=== PATIENT | female | born 1990 | race Caucasian/White ===

== ENCOUNTER → 2016-12-13 | Outpatient (CLI) | payer BC ==
--- NOTE | 2016-12-13 10:30 | REP ---
PELVIC SONOGRAPHY: HISTORY: Neoplasm of uncertain behavior right ovary. Comparison study October 25, 2016. FINDINGS: Transabdominal and transvaginal scanning are included. Uterine dimensions are normal today at 7.6 x 2.7 x 4.3 cm. Endometrial echo is normal measuring 0.5 cm in thickness. No focal uterine mass is seen. No free fluid is noted. Normal right ovary seen today measuring 3.4 x 1.6 x 1.7 cm. Left ovary is normal as well measuring 3.0 x 1.4 x 1.6 cm. IMPRESSION: No ovarian abnormality. Normal pelvic sonography. Signed by Bandar Harding MD 12/13/2016 02:51 P
== END ==
LOC: M RAD 08:46
PROVIDERS: ATTEND Obstetrics & Gynecology
DX: D39.11 Neoplasm of uncertain behavior of right ovary (principal)

== ENCOUNTER → 2018-06-10 | Outpatient (REF) | payer BC ==
[2018-06-10 18:24] LABS: INFLUENZA A AMPLIFICATION NEGATIVE (NEGATIVE); INFLUENZA B AMPLIFICATION NEGATIVE (NEGATIVE)
== END ==
LOC: M LAB REF 17:26
DX: J02.9 Acute pharyngitis, unspecified (principal)
CPT/HCPCS: 87070

== ENCOUNTER → 2018-08-16 | Outpatient (REF) | payer BC | LOC: M SFHCLERA 10:16 | PROVIDERS: ATTEND Nurse Practitioner Family | DX: J02.9 Acute pharyngitis, unspecified (principal) ==

== ENCOUNTER → 2018-09-26 | Outpatient (CLI) | payer BC ==
[2018-09-26 14:22] LABS: BASO # 0.1 10^3/uL (0.0-0.2); BASO % 1.4 % (0.0-1.0); EOS # 0.1 10^3/uL (0.0-0.50); EOS % 1.7 % (0.0-3.0); HEMATOCRIT 41.3 % (36.0-47.0); HEMOGLOBIN 13.5 g/dl (12.0-15.5); LYMPH # 1.6 10^3/uL (1.5-6.5); MEAN CORPUSCULAR HEMOGLOBIN 29.1 pg (27.0-33.0); MEAN CORPUSCULAR HGB CONC 32.7 g/dl (32.0-36.5); MONO # 0.3 10^3/uL (0.0-0.8); MONO % 8.1 % (0.0-5.0); NEUTROPHILS # 2.1 10^3/uL (1.8-7.7); NEUTROPHILS % 49.6 % (36.0-66.0); PLATELET COUNT, AUTOMATED 220 10^3/uL (150-450); RED BLOOD COUNT 4.64 10^6/uL (4.00-5.40); WHITE BLOOD COUNT 4.2 10^3/uL (4.0-10.0)
[2018-09-26 14:38] LABS: HEMOGLOBIN A1c 4.9 %
[2018-09-26 15:55] LABS: CHLAMYDIA DNA AMPLIFICATION NEGATIVE (NEGATIVE); GC DNA AMPLIFICATION NEGATIVE (NEGATIVE)
[2018-09-26 16:14] LABS: LUTEINIZING HORMONE 10.6 mIU/mL; PROLACTIN 7.1 NG/ML
[2018-09-26 16:15] LABS: ESTRADIOL 233.1 PG/ML
[2018-09-26 16:16] LABS: FOLLICLE STIMULATING HORMONE 4.6 mIU/mL
[2018-09-26 16:25] LABS: RUBELLA IgG QUALITATIVE IMMUNE (IMMUNE)
[2018-09-26 16:54] LABS: HEPATITIS C VIRUS ABY INDEX 0.1 INDEX (<0.8)
[2018-09-26 16:55] LABS: HIV 1&2 SCREEN CENTAUR NEGATIVE (NEGATIVE)
== END ==
LOC: M SMT 09:56
PROVIDERS: ATTEND Obstetrics & Gynecology
DX: N97.9 Female infertility, unspecified (principal)

== ENCOUNTER 2018-12-25 13:21 | Emergency (ER) | payer BC, OTHER ==
[~2018-12-25] VITALS: Ht 162.6 cm; Wt 54.5 kg
[2018-12-25] MEDS ORDERED: ACETAMINOPHEN TAB 650MG DOSE (2X325MG) PO ONE (13:45)
[2018-12-25] MEDS ORDERED: ALPRAZolam 0.25 MG TAB PO ONE (13:45)
[2018-12-25 14:59] VITALS: BP 122/76
== END 2018-12-25 15:15 | disposition home or self-care (01) ==
LOC: M ED 14:24
DX: S60.212A Contusion of left wrist, initial encounter (principal); V49.40XA Driver injured in collision with unspecified motor vehicles in traffic accident, initial encounter; Y92.9 Unspecified place or not applicable; F17.210 Nicotine dependence, cigarettes, uncomplicated; F43.0 Acute stress reaction; Z88.0 Allergy status to penicillin

== ENCOUNTER 2019-01-20 00:16 | Emergency (ER) | payer BC, OTHER ==
[~2019-01-20] VITALS: Ht 162.6 cm; Wt 54.5 kg
[2019-01-20] MEDS ORDERED: METHOCARBAMOL 1,000 MG/10 ML VIAL (J2800) IV ONE (02:45)
[2019-01-20] MEDS ORDERED: KETOROLAC 30 MG/ML VIAL (J1885) IV ONE (02:45)
[2019-01-20] MEDS ORDERED: NAPR-837 PO (03:48)
[2019-01-20] MEDS ORDERED: ROBA500T PO (03:48)
[2019-01-20 04:02] VITALS: BP 132/87
== END 2019-01-20 04:07 | disposition home or self-care (01) ==
LOC: M ED 00:16
DX: M54.5 Low back pain (principal); M62.830 Muscle spasm of back; F43.10 Post-traumatic stress disorder, unspecified; E28.2 Polycystic ovarian syndrome; F17.210 Nicotine dependence, cigarettes, uncomplicated; Z88.0 Allergy status to penicillin
CPT/HCPCS: 96374; 96375; 99284; J1885; J2800

== ENCOUNTER 2019-04-16 16:17 | Emergency (ER) | payer BC, OTHER ==
[~2019-04-16] VITALS: Ht 162.6 cm; Wt 60.9 kg
[~2019-04-16 16:17] MED LIST: NAPR-837 PO; ROBA500T PO
[2019-04-16] MEDS ORDERED: ENSK1TAB3 PO (16:24)
[2019-04-16] MEDS ORDERED: KETOROLAC 60 MG/2 ML VIAL (J1885) IM ONE (17:30)
[2019-04-16] MEDS ORDERED: CYCL5TAB PO (17:58)
[2019-04-16] MEDS ORDERED: KETO10TAB PO (17:58)
[2019-04-16 18:30] VITALS: BP 115/78
== END 2019-04-16 18:32 | disposition home or self-care (01) ==
LOC: M ED 16:17
DX: J02.9 Acute pharyngitis, unspecified (principal); M54.5 Low back pain; E28.2 Polycystic ovarian syndrome; F17.200 Nicotine dependence, unspecified, uncomplicated; Z79.3 Long term (current) use of hormonal contraceptives; Z88.0 Allergy status to penicillin
CPT/HCPCS: 87880; 96372; 99284; J1885

== ENCOUNTER 2019-06-04 03:11 | Emergency (ER) | payer BC ==
[~2019-06-04] VITALS: Ht 162.6 cm; Wt 60.9 kg
[2019-06-04 03:11] VITALS: BP 141/88
[~2019-06-04 03:11] MED LIST changes: +CYCL5TAB PO; +ENSK1TAB3 PO; +KETO10TAB PO
[2019-06-04] MEDS ORDERED: CEFD1CAP8 PO (05:45)
[2019-06-04] MEDS ORDERED: CEFDINIR 300 MG CAP (OMNICEF) PO ONE (05:45)
== END 2019-06-04 06:02 | disposition home or self-care (01) ==
LOC: M ED 03:11
DX: J02.0 Streptococcal pharyngitis (principal); E28.2 Polycystic ovarian syndrome; Z79.3 Long term (current) use of hormonal contraceptives; Z88.0 Allergy status to penicillin; F17.210 Nicotine dependence, cigarettes, uncomplicated

== ENCOUNTER 2019-07-18 16:26 | Emergency (ER) | payer BC, OTHER ==
[~2019-07-18] VITALS: Ht 162.6 cm; Wt 67.9 kg
[~2019-07-18 16:26] MED LIST changes: +CEFD1CAP8 PO
--- NOTE | 2019-07-18 18:10 | REP ---
Left foot series: Four views. History: Left foot pain intermittently. Previous injury. Findings: Four views of the left foot demonstrate overall normal mineralization. There is no visible fracture or subluxation. No periosteal reaction is seen. Joint spaces are preserved. Impression: Negative radiographs left foot. Electronically Signed by Bandar Harding MD 07/18/2019 06:01 P
[2019-07-18 20:27] VITALS: BP 134/74
== END 2019-07-18 20:29 | disposition home or self-care (01) ==
LOC: M ED 16:26
DX: M79.672 Pain in left foot (principal); W00.0XXA Fall on same level due to ice and snow, initial encounter; Y99.0 Civilian activity done for income or pay; Z88.1 Allergy status to other antibiotic agents; Z79.899 Other long term (current) drug therapy

== ENCOUNTER 2019-08-15 15:40 | Emergency (ER) | payer BC, OTHER ==
[~2019-08-15] VITALS: Ht 162.6 cm; Wt 68.4 kg
[2019-08-15 17:32] LABS: INFLUENZA A AMPLIFICATION NEGATIVE (NEGATIVE); INFLUENZA B AMPLIFICATION NEGATIVE (NEGATIVE)
[2019-08-15] MEDS ORDERED: ONDA4TAB6 PO (18:32)
[2019-08-15 18:37] VITALS: BP 128/77
== END 2019-08-15 18:40 | disposition home or self-care (01) ==
LOC: M ED 15:40
DX: J06.9 Acute upper respiratory infection, unspecified (principal); Z79.3 Long term (current) use of hormonal contraceptives; Z88.0 Allergy status to penicillin

== ENCOUNTER 2020-01-14 13:19 | Emergency (ER) | payer OTHER, BC ==
[~2020-01-14] VITALS: Ht 162.6 cm; Wt 71.4 kg
[~2020-01-14 13:19] MED LIST changes: +ONDA4TAB6 PO
[2020-01-14] MEDS ORDERED: ZYRTTAB8 PO (13:30)
[2020-01-14] MEDS ORDERED: IBUP-1022 PO (13:37)
[2020-01-14] MEDS ORDERED: ACETAMINOPHEN 325 MG TAB PO ONE (14:00)
[2020-01-14] MEDS ORDERED: ONDANSETRON 4 MG ORAL DISINTEGRATING TAB PO ONE (14:00)
[2020-01-14] MEDS ORDERED: ONDA4TAB6 PO (16:05)
--- NOTE | 2020-01-14 16:06 | REP ---
CT brain: 01/14/2020. Indication: Head trauma. Technique: Unenhanced axial CT images of the brain were performed with coronal reconstructions provided. Comparison: None. Findings: There is no acute intracranial hemorrhage, acute cortical infarction, mass effect, hydrocephalus or acute calvarial fracture. Impression: No acute intracranial process. Electronically Signed by Joshua Jacob DO 01/14/2020 03:57 P
[2020-01-14 16:12] VITALS: BP 120/77
== END 2020-01-14 16:15 | disposition home or self-care (01) ==
LOC: M ED 13:19
DX: S06.0X0A Concussion without loss of consciousness, initial encounter (principal); Y04.8XXA Assault by other bodily force, initial encounter; Y92.119 Unspecified place in children's home and orphanage as the place of occurrence of the external cause; Y99.0 Civilian activity done for income or pay; E28.2 Polycystic ovarian syndrome; M54.5 Low back pain; Z79.899 Other long term (current) drug therapy; Z79.3 Long term (current) use of hormonal contraceptives; Z88.0 Allergy status to penicillin; F17.210 Nicotine dependence, cigarettes, uncomplicated
CPT/HCPCS: 70450; 84702; 99283; Q0162

== ENCOUNTER 2020-01-19 13:37 | Emergency (ER) | payer OTHER, BC ==
[~2020-01-19] VITALS: Ht 162.6 cm; Wt 72.1 kg
[~2020-01-19 13:37] MED LIST changes: +IBUP-1022 PO; +ZYRTTAB8 PO
[2020-01-19] MEDS ORDERED: ACET-683 PO (14:15)
[2020-01-19] MEDS ORDERED: KETO10TAB PO (15:23)
[2020-01-19 15:30] VITALS: BP 119/81
== END 2020-01-19 15:32 | disposition home or self-care (01) ==
LOC: M ED 13:37
DX: F07.81 Postconcussional syndrome (principal); E28.2 Polycystic ovarian syndrome; Z79.899 Other long term (current) drug therapy; Z79.3 Long term (current) use of hormonal contraceptives; Z88.0 Allergy status to penicillin

== ENCOUNTER 2020-02-24 14:46 | Emergency (ER) | payer OTHER, BC ==
[~2020-02-24 14:46] MED LIST changes: +ACET-683 PO
== END 2020-02-24 18:10 | disposition home or self-care (01) ==
LOC: M ED 14:46
DX: S63.92XA Sprain of unspecified part of left wrist and hand, initial encounter (principal); S60.222A Contusion of left hand, initial encounter; X58.XXXA Exposure to other specified factors, initial encounter; Y92.89 Other specified places as the place of occurrence of the external cause; Y93.89 Activity, other specified; Y99.0 Civilian activity done for income or pay; Z79.3 Long term (current) use of hormonal contraceptives; Z79.899 Other long term (current) drug therapy; Z88.0 Allergy status to penicillin

== ENCOUNTER → 2020-03-11 | Outpatient (CLI) | payer BC, OTHER | LOC: M SFHCWAGY 11:27 | PROVIDERS: ATTEND Obstetrics & Gynecology | DX: Z12.4 Encounter for screening for malignant neoplasm of cervix (principal) | CPT/HCPCS: 87624; G0123 ==

== ENCOUNTER → 2020-05-25 | Outpatient (REF) | payer OTHER, BC | LOC: M SFHCWAGY 17:13 | PROVIDERS: ATTEND Obstetrics & Gynecology | DX: B97.7 Papillomavirus as the cause of diseases classified elsewhere (principal) ==

== ENCOUNTER → 2020-06-14 | Outpatient (CLI) | payer OTHER, BC ==
[~2020-06-14] MED LIST changes: +AMIT10TA
== END ==
LOC: M LABSMTC 09:03
PROVIDERS: ATTEND Anesthesiology
DX: Z11.59 Encounter for screening for other viral diseases (principal)

== ENCOUNTER 2020-06-19 06:05 | Day surgery (SDC) | payer BC ==
[~2020-06-19] VITALS: Ht 162.6 cm; Wt 69.4 kg
[~2020-06-19 06:05] MED LIST changes: +LIDOCAINE 1% MDV 20ML VIAL SQ PRN
[2020-06-19 06:41] LABS: HEMOGLOBIN 12.8 g/dl (12.0-15.5); MEAN CORPUSCULAR HEMOGLOBIN 28.3 pg (27.0-33.0); MEAN CORPUSCULAR HGB CONC 32.8 g/dl (32.0-36.5); MEAN CORPUSCULAR VOLUME 86.3 fl (80.0-96.0); PLATELET COUNT, AUTOMATED 224 10^3/uL (150-450); RED BLOOD COUNT 4.52 10^6/uL (4.00-5.40); WHITE BLOOD COUNT 6.6 10^3/uL (4.0-10.0)
[2020-06-19 07:00] LABS: HCG, SERUM QUALITATIVE NEGATIVE (NEGATIVE)
[2020-06-19] MEDS ORDERED: LR 1,000 ML IV ONE (07:00)
[2020-06-19] MEDS ORDERED: SILVER NITRATE APPLICATOR As Ordered ONE (07:11)
[2020-06-19] MEDS ORDERED: LIDOCAINE W/EPINEPHRINE 1% 20ML VIAL As Ordered ONE (07:11)
[2020-06-19] MEDS ORDERED: IODINE STRONG SOLN 15 ML BTL As Ordered ONE (07:12)
[2020-06-19] MEDS ORDERED: ONDANSETRON 4MG/2ML VIAL As Ordered ONE (07:20)
[2020-06-19] MEDS ORDERED: dexameTHASONE 4 MG/ML 1ML VIAL (J1100 PER 1MG) As Ordered ONE (07:20)
[2020-06-19] MEDS ORDERED: LIDOCAINE 2% 100MG/5ML SDV (FOR ANES.) As Ordered ONE (07:20)
[2020-06-19] MEDS ORDERED: propofoL 200 MG/20 ML VIAL As Ordered ONE (07:20)
[2020-06-19] MEDS ORDERED: MIDAZOLAM INJ 2MG/2ML VIAL (J2250 PER 1MG) As Ordered ONE (07:23)
[2020-06-19] MEDS ORDERED: fentaNYL 100 MCG/2 ML INJECTION (J3010) As Ordered ONE ×2 (07:23→08:50)
[2020-06-19] MEDS ORDERED: KETOROLAC 60MG 2ML VIAL As Ordered ONE (07:24)
[2020-06-19] MEDS ORDERED: oxyCODONE 5MG TAB As Ordered ONE (08:50)
--- NOTE | 2020-06-19 08:55 | ROOPDOC ---
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 ANESTHESIA: Intravenous (IV) sedation with local anesthesia/paracervical block. SPECIMEN(S) SENT TO PATHOLOGY: Bottom half of the cervix with squamocolumnar junction. Top half of the cervix with the squamocolumnar junction. ESTIMATED BLOOD LOSS: 20 mL. FLUIDS PLACED: 600 mL. DRAINS: In and out catheter, 150 mL. URINE OUTPUT: None. COMPLICATIONS: None. ANTIBIOTICS: None indicated. INTRAOPERATIVE FINDINGS: INDICATIONS: RK 2-3. DESCRIPTION OF PROCEDURE: The patient was counseled and consented on the risks, benefits, indications, and alternatives of the procedure. Informed consent was obtained. She was taken to the operating room with an IV running in placed on the operating table and then dorsal supine position. Anesthesia was found to be adequate. She was placed in the high lithotomy position. She was prepared and draped in normal sterile fashion. Time-out was performed per protocol. The bladder was drained with sterile in and out catheter. A coated Graves speculum was placed into the vagina with good visualization of the cervix. The cervix was coated with acetic acid and the dysplasia was evident even without colposcopy. The size 20 mm x 10 mm loop was used to excise the bottom half of the cervix at the level of the squamocolumnar junction. In a similar fashion the top half of the cervix including the squamocolumnar junction was excised with the same loop, and these two specimens were sent separately to pathology. The remaining raw cervix was cauterized with a roller ball cautery. Excellent hemostasis was noted. Monsel solution was applied to ensure hemostasis. Paracervical block was performed for postoperative comfort. Ten mL of 1% Lidocaine with epinephrine used. Sponge, needle, and instrument counts were correct per protocol. The patient tolerated the entire procedure very well. She was transferred to the PACU in good and stable condition. NOAH PONCE DO Jun 19, 2020 08:55
[2020-06-19] MEDS ORDERED: LR 1,000 ML IV SCH ×2 (09:15)
[2020-06-19] MEDS ORDERED: HYDROMORPHONE HCL 0.5 MG/ 0.5 ML SYRINGE (J1170 PER 1) IV PRN (09:15)
[2020-06-19] MEDS ORDERED: ONDANSETRON 4MG/2ML VIAL IV PRN (09:15)
[2020-06-19] MEDS ORDERED: oxyCODONE 5MG TAB PO PRN (09:15)
[2020-06-19] MEDS ORDERED: fentaNYL 100 MCG/2 ML INJECTION (J3010) IV PRN (09:15)
[2020-06-19 10:10] VITALS: BP 134/78
== END 2020-06-19 10:23 | disposition home or self-care (01) ==
LOC: M SDC 06:05
PROVIDERS: ATTEND Obstetrics & Gynecology
DX: D06.9 Carcinoma in situ of cervix, unspecified (principal); G43.909 Migraine, unspecified, not intractable, without status migrainosus; F43.10 Post-traumatic stress disorder, unspecified; Z79.899 Other long term (current) drug therapy; Z88.0 Allergy status to penicillin; Z87.891 Personal history of nicotine dependence
CPT/HCPCS: 36415; 57522; 84703; 85027; 86850; 86900; 86901; 88307; 88342; J1100; J1885; J2250; J2405; J3010

== ENCOUNTER → 2021-08-23 | Outpatient (REF) | payer BC ==
[~2021-08-23] MED LIST changes: -AMIT10TA; +AMIT10TA7; -CEFD1CAP8 PO; +CEFD300C41 PO; -LIDOCAINE 1% MDV 20ML VIAL SQ PRN
== END ==
LOC: M SFHCWAGY 13:13
PROVIDERS: ATTEND Obstetrics & Gynecology
DX: Z12.4 Encounter for screening for malignant neoplasm of cervix (principal)
CPT/HCPCS: 87624; G0123

== ENCOUNTER → 2021-11-10 | Outpatient (CLI) | payer BC | LOC: M WHC 15:39 | PROVIDERS: ATTEND Obstetrics & Gynecology | DX: N94.10 Unspecified dyspareunia (principal) ==

== ENCOUNTER → 2022-05-18 | Outpatient (CLI) | payer BC ==
[2022-05-18 17:19] LABS: HEMATOCRIT 36.7 % (36.0-47.0); HEMOGLOBIN 12.3 g/dl (12.0-15.5); MEAN CORPUSCULAR HEMOGLOBIN 29.1 pg (27.0-33.0); MEAN CORPUSCULAR HGB CONC 33.5 g/dl (32.0-36.5); MEAN CORPUSCULAR VOLUME 86.8 fl (80.0-96.0); PLATELET COUNT, AUTOMATED 197 10^3/uL (150-450); RED BLOOD COUNT 4.23 10^6/uL (4.00-5.40); WHITE BLOOD COUNT 6.5 10^3/uL (4.0-10.0)
[2022-05-18 18:47] LABS: HEPATITIS C VIRUS ABY INDEX 0.2 INDEX (<0.8); HIV 1&2 SCREEN CENTAUR NEGATIVE (NEGATIVE)
[2022-05-18 19:46] LABS: GC DNA AMPLIFICATION NEGATIVE (NEGATIVE)
== END ==
LOC: M PLALAB 14:46
PROVIDERS: ATTEND Obstetrics & Gynecology
DX: O34.41 Maternal care for other abnormalities of cervix, first trimester (principal); Z3A.09 9 weeks gestation of pregnancy; Z98.890 Other specified postprocedural states

== ENCOUNTER → 2022-06-16 | Outpatient (REF) | payer BC | LOC: M PLALAB 13:05 | PROVIDERS: ATTEND Obstetrics & Gynecology | DX: Z34.80 Encounter for supervision of other normal pregnancy, unspecified trimester (principal) ==

== ENCOUNTER → 2022-06-28 | Outpatient (CLI) | payer BC | LOC: M WHC 07:40 | PROVIDERS: ATTEND Obstetrics & Gynecology | DX: O34.41 Maternal care for other abnormalities of cervix, first trimester (principal) ==

== ENCOUNTER → 2022-07-27 | Outpatient (CLI) | payer BC | LOC: M WHC 11:59 | PROVIDERS: ATTEND Obstetrics & Gynecology | DX: Z34.82 Encounter for supervision of other normal pregnancy, second trimester (principal); Z3A.20 20 weeks gestation of pregnancy ==

== ENCOUNTER → 2022-08-30 | Outpatient (CLI) | payer BC | LOC: M WHC 11:03 | PROVIDERS: ATTEND Obstetrics & Gynecology | DX: Z34.82 Encounter for supervision of other normal pregnancy, second trimester (principal) ==

== ENCOUNTER → 2022-09-13 | Outpatient (CLI) | payer BC ==
[2022-09-13 11:39] LABS: HEMATOCRIT 34.3 % (36.0-47.0); HEMOGLOBIN 11.3 g/dl (12.0-15.5); MEAN CORPUSCULAR HEMOGLOBIN 29.8 pg (27.0-33.0); MEAN CORPUSCULAR HGB CONC 32.9 g/dl (32.0-36.5); MEAN CORPUSCULAR VOLUME 90.5 fl (80.0-96.0); PLATELET COUNT, AUTOMATED 198 10^3/uL (150-450); RED BLOOD COUNT 3.79 10^6/uL (4.00-5.40); WHITE BLOOD COUNT 8.8 10^3/uL (4.0-10.0)
[2022-09-13 13:46] LABS: GC DNA AMPLIFICATION NEGATIVE (NEGATIVE)
== END ==
LOC: M PLALAB 07:44
PROVIDERS: ATTEND Obstetrics & Gynecology
DX: Z34.80 Encounter for supervision of other normal pregnancy, unspecified trimester (principal)

== ENCOUNTER → 2022-10-10 | Outpatient (CLI) | payer BC | LOC: M WHC 07:31 | PROVIDERS: ATTEND Advanced Practice Midwife | DX: Z34.02 Encounter for supervision of normal first pregnancy, second trimester (principal) ==

== ENCOUNTER 2022-11-02 13:32 | Outpatient (CLI) | payer BC ==
[~2022-11-02] VITALS: Ht 162.6 cm; Wt 76.1 kg
[2022-11-02] MEDS ORDERED: TUMS750C5 PO (13:51)
[2022-11-02] MEDS ORDERED: PRENTAB9 PO (13:51)
[2022-11-02 13:52] VITALS: BP 130/72
[2022-11-02] MEDS ORDERED: HOME MED LIST COMPLETE! XX SCH (13:55)
[2022-11-02 15:14] LABS: AMORPHOUS SEDIMENT SMALL (NEGATIVE); APPEARANCE, URINE CLOUDY (CLEAR); BACTERIA, URINE AUTO 2+ (NEGATIVE); BILIRUBIN, URINE AUTO NEGATIVE (NEGATIVE); BLOOD, URINE BLOOD NEGATIVE (NEGATIVE); COLOR, URINE YELLOW (YELLOW); GLUCOSE, URINE (UA) AUTO NEGATIVE (NEGATIVE); KETONE, URINE AUTO NEGATIVE (NEGATIVE); LEUKOCYTE ESTERASE, URINE AUTO 3+ (NEGATIVE); MUCUS, URINE SMALL (NEGATIVE); NITRITE, URINE AUTO NEGATIVE (NEGATIVE); PROTEIN, URINE AUTO NEGATIVE (NEGATIVE); RBC, URINE AUTO 3 /HPF (0-3); SPECIFIC GRAVITY URINE AUTO 1.006 (1.002-1.035); SQUAMOUS EPITHELIAL CELL UR AU 27 /HPF (0-6); UROBILINOGEN, URINE AUTO 0.2 mg/dL (0.0-2.0); WBC, URINE AUTO 64 /HPF (0-3)
== END 2022-11-02 15:35 | disposition home or self-care (01) ==
LOC: M LDO 13:32
PROVIDERS: ATTEND Advanced Practice Midwife
DX: O36.8130 Decreased fetal movements, third trimester, not applicable or unspecified (principal); O26.893 Other specified pregnancy related conditions, third trimester; M54.50 Low back pain, unspecified; Z3A.34 34 weeks gestation of pregnancy
CPT/HCPCS: 59025; 81001; 87086; G0463

== ENCOUNTER → 2022-11-21 | Outpatient (REF) | payer BC ==
[~2022-11-21] MED LIST changes: +PRENTAB9 PO; +TUMS750C5 PO
== END ==
LOC: M SFHCWAGY 17:40
PROVIDERS: ATTEND Obstetrics & Gynecology
DX: Z34.80 Encounter for supervision of other normal pregnancy, unspecified trimester (principal)

== ENCOUNTER 2022-12-05 21:04 | Outpatient (CLI) | payer BC ==
[~2022-12-05] VITALS: Ht 162.6 cm; Wt 81.0 kg
[2022-12-05 21:24] VITALS: BP 128/84
[2022-12-05] MEDS ORDERED: HOME MED LIST COMPLETE! XX SCH (21:30)
== END 2022-12-05 22:14 | disposition home or self-care (01) ==
LOC: M LDO 21:04
PROVIDERS: ATTEND Advanced Practice Midwife
DX: O26.893 Other specified pregnancy related conditions, third trimester (principal); R25.2 Cramp and spasm; Z3A.38 38 weeks gestation of pregnancy
CPT/HCPCS: 59025; 76815; G0463

== ENCOUNTER 2022-12-14 09:26 | Inpatient (IN) | payer BC ==
[~2022-12-14] VITALS: Ht 162.6 cm; Wt 81.7 kg
[2022-12-14] MEDS ORDERED: CARBOPROST TROMETHAMINE 250 MCG/ML AMP IM PRN (09:45)
[2022-12-14] MEDS ORDERED: LIDOCAINE 1% MDV 20ML VIAL INFIL PRN (09:45)
[2022-12-14] MEDS ORDERED: METHYLERGONOVINE MALEATE 0.2MG/ML 1ML VIAL IM PRN (09:45)
[2022-12-14] MEDS ORDERED: TRANEXAMIC ACID INJection 1,000 MG in NS 100 ML IV PRN (09:45)
[2022-12-14] MEDS ORDERED: OXYTOCIN INJ 10UNITS/ML 1ML VIAL IM PRN (09:45)
[2022-12-14] MEDS ORDERED: OXYTOCIN DRIP 30 UNITS in IV 1 EA IV PRN ×4 (09:45)
[2022-12-14] MEDS ORDERED: HOME MED LIST COMPLETE! XX SCH (09:50)
[2022-12-14 10:32] LABS: HEMATOCRIT 31.9 % (36.0-47.0); HEMOGLOBIN 10.5 g/dl (12.0-15.5); MEAN CORPUSCULAR HEMOGLOBIN 26.4 pg (27.0-33.0); MEAN CORPUSCULAR HGB CONC 32.9 g/dl (32.0-36.5); MEAN CORPUSCULAR VOLUME 80.4 fl (80.0-96.0); PLATELET COUNT, AUTOMATED 151 10^3/uL (150-450); RED BLOOD COUNT 3.97 10^6/uL (4.00-5.40); WHITE BLOOD COUNT 7.7 10^3/uL (4.0-10.0)
[2022-12-14 10:33] VITALS: BP 109/77
[2022-12-14] MEDS: miSOPROStol 50MCG 1/2 TABLET PO SCH ×2 (10:51→14:52)
[2022-12-14 11:31] VITALS: BP 104/80
[2022-12-14 12:58] VITALS: BP 114/81
[2022-12-14 14:35] VITALS: BP 128/81
[2022-12-14 16:53] VITALS: BP 122/82
[2022-12-14 18:24] VITALS: BP 112/70
[2022-12-14] MEDS ORDERED: OXYTOCIN DRIP 30 UNITS in IV 1 EA IV SCH (18:40)
[2022-12-14] MEDS ORDERED: LR 1,000 ML IV SCH (18:40)
[2022-12-15] VITALS (19 sets, daily range): BP systolic 113–132; BP diastolic 69–87; O2SAT 97–98
[2022-12-15] MEDS ORDERED: diphenhydrAMINE 50MG/ML VIAL IV PRN (01:35)
[2022-12-15] MEDS ORDERED: LR 500 ML IV PRN (01:35)
[2022-12-15] MEDS ORDERED: NALOXONE INJ 0.4MG/1ML VIAL IV PRN (01:35)
[2022-12-15] MEDS ORDERED: EPIDURAL/PCA KEYS XX PRN (01:35)
[2022-12-15] MEDS ORDERED: ONDANSETRON 4MG 2ML VIAL IV PRN (01:35)
[2022-12-15] MEDS ORDERED: ePHEDrine SULFATE 25 MG/5 ML(5MG/ML) SYRINGE IVP PRN (01:35)
[2022-12-15] MEDS: FENTANYL/ROPIVACAINE/NACL BAG 100 ML EPIDURAL SCH ×2 (01:56→10:56)
[2022-12-15] MEDS ORDERED: OXYTOCIN DRIP 30 UNITS in IV 1 EA IV SCH (11:35)
[2022-12-15] MEDS ORDERED: RHOGAM 300MCG (1500IU) INJ IM SCH (11:35)
[2022-12-15] MEDS ORDERED: DIBUCAINE 1% OINTMENT 30GM TOP PRN (11:35)
[2022-12-15] MEDS ORDERED: METHYLERGONOVINE MALEATE 0.2 MG TAB PO PRN (11:35)
[2022-12-15] MEDS: ACETAMINOPHEN 500 MG TAB PO PRN (12:32)
[2022-12-15] MEDS: DOCUSATE SODIUM 100MG CAPSULE PO PRN (16:43)
[2022-12-15] MEDS: IBUPROFEN 600MG TAB PO PRN (16:58)
[2022-12-16] MEDS: ACETAMINOPHEN 500 MG TAB PO PRN ×2 (01:45→13:38)
[2022-12-16 06:00] VITALS: BP 99/61; O2SAT 99
[2022-12-16 09:31] LABS: HEMATOCRIT 27.3 % (36.0-47.0); HEMOGLOBIN 8.8 g/dl (12.0-15.5); MEAN CORPUSCULAR HEMOGLOBIN 26.6 pg (27.0-33.0); MEAN CORPUSCULAR HGB CONC 32.2 g/dl (32.0-36.5); MEAN CORPUSCULAR VOLUME 82.5 fl (80.0-96.0); PLATELET COUNT, AUTOMATED 104 10^3/uL (150-450); RED BLOOD COUNT 3.31 10^6/uL (4.00-5.40); WHITE BLOOD COUNT 10.4 10^3/uL (4.0-10.0)
[2022-12-16] MEDS: PRENATAL VITAMINS CHEWABLE TABLET PO SCH (09:35)
[2022-12-16] MEDS: IBUPROFEN 600MG TAB PO PRN (16:08)
[2022-12-16 18:00] VITALS: BP 113/67; O2SAT 99
[2022-12-17 06:06] VITALS: BP 111/72; O2SAT 100
[2022-12-17] MEDS: PRENATAL VITAMINS CHEWABLE TABLET PO SCH (08:49)
[2022-12-17] MEDS ORDERED: MEASLES,MUMPS,RUBELLA VACCINE INJ (MMR-II) SC.IMMUN ONE (09:00)
[2022-12-17] MEDS: DOCUSATE SODIUM 100MG CAPSULE PO PRN (14:02)
[2022-12-17] MEDS: ACETAMINOPHEN 500 MG TAB PO PRN (14:02)
== END 2022-12-17 14:30 | disposition home or self-care (01) | DRG 560 ==
LOC: M LDI 09:26 → M OBS 12-15 14:15
PROVIDERS: ADMIT Advanced Practice Midwife; ATTEND Advanced Practice Midwife
PROC: 3E033VJ Introduction of Other Hormone into Peripheral Vein, Percutaneous Approach (ICD-10-PCS; 2022-12-14)
PROC: 3E0P7VZ Introduction of Hormone into Female Reproductive, Via Natural or Artificial Opening (ICD-10-PCS; 2022-12-14)
PROC: 10E0XZZ Delivery of Products of Conception, External Approach (ICD-10-PCS; principal; 2022-12-15)
PROC: 0KQM0ZZ Repair Perineum Muscle, Open Approach (ICD-10-PCS; 2022-12-15)
DX: O69.82X0 Labor and delivery complicated by other cord entanglement, without compression, not applicable or unspecified (principal); Z37.0 Single live birth; Z3A.40 40 weeks gestation of pregnancy; O70.1 Second degree perineal laceration during delivery; Z88.0 Allergy status to penicillin

== ENCOUNTER 2023-10-06 11:46 | Day surgery (SDC) | payer BC ==
[~2023-10-06] VITALS: Ht 162.6 cm; Wt 73.6 kg
[~2023-10-06 11:46] MED LIST changes: +CEFD1CAP9 PO; -CEFD300C41 PO; +ESTA0.25 PO; +LR 1,000 ML IV SCH; +ZYRT10TA12 PO
[2023-10-06] MEDS ORDERED: LR 1,000 ML IV SCH ×2 (12:20→15:15)
[2023-10-06 12:28] LABS: HEMATOCRIT 36.1 % (36.0-47.0); MEAN CORPUSCULAR HEMOGLOBIN 27.6 pg (27.0-33.0); MEAN CORPUSCULAR HGB CONC 33.2 g/dl (32.0-36.5); MEAN CORPUSCULAR VOLUME 83.2 fl (80.0-96.0); PLATELET COUNT, AUTOMATED 279 10^3/uL (150-450); RED BLOOD COUNT 4.34 10^6/uL (4.00-5.40); WHITE BLOOD COUNT 6.8 10^3/uL (4.0-10.0)
[2023-10-06 12:51] LABS: HCG, SERUM QUALITATIVE NEGATIVE (NEGATIVE)
[2023-10-06] MEDS ORDERED: fentaNYL 100 MCG/2 ML INJECTION As Ordered ONE (13:49)
[2023-10-06] MEDS ORDERED: HYDROmorphone HCL 2MG/ML 1ML VIAL As Ordered ONE (13:49)
[2023-10-06] MEDS ORDERED: MIDAZOLAM INJ 2MG/2ML VIAL As Ordered ONE (13:49)
[2023-10-06] MEDS ORDERED: LIDOCAINE 2% 100MG/5ML SDV (FOR ANES.) As Ordered ONE (13:50)
[2023-10-06] MEDS ORDERED: KETOROLAC 60MG 2ML VIAL As Ordered ONE (13:50)
[2023-10-06] MEDS ORDERED: ROCURONIUM BROMIDE 50MG/5ML VIAL As Ordered ONE (13:50)
[2023-10-06] MEDS ORDERED: propofoL 200 MG/20 ML VIAL As Ordered ONE (13:50)
[2023-10-06] MEDS ORDERED: ONDANSETRON 4MG 2ML VIAL As Ordered ONE (13:50)
[2023-10-06] MEDS ORDERED: ACETAMINOPHEN 1000MG 100ML IV BAG As Ordered ONE (13:52)
[2023-10-06] MEDS ORDERED: SUGAMMADEX SODIUM 500 MG/5 ML VIAL (BRIDION) As Ordered ONE (13:57)
[2023-10-06] MEDS ORDERED: PERC5TAB12 PO (15:12)
[2023-10-06] MEDS ORDERED: IBUP80TA PO (15:13)
[2023-10-06] MEDS ORDERED: COLA100C5 PO (15:13)
[2023-10-06] MEDS ORDERED: oxyCODONE 5MG TAB PO PRN (15:15)
[2023-10-06] MEDS ORDERED: HYDROMORPHONE HCL 0.5 MG/ 0.5 ML SYRINGE IV PRN (15:15)
[2023-10-06] MEDS ORDERED: fentaNYL 100 MCG/2 ML INJECTION IV PRN (15:15)
[2023-10-06] MEDS ORDERED: ONDANSETRON 4MG 2ML VIAL IV PRN (15:15)
[2023-10-06 16:20] VITALS: BP 136/89; TEMP 97.4; O2SAT 99
== END 2023-10-06 17:13 | disposition home or self-care (01) ==
LOC: M SDC 11:46
PROVIDERS: ATTEND Obstetrics & Gynecology
DX: Z30.2 Encounter for sterilization (principal); J32.9 Chronic sinusitis, unspecified; Z79.899 Other long term (current) drug therapy; Z87.891 Personal history of nicotine dependence; Z88.0 Allergy status to penicillin; Z80.8 Family history of malignant neoplasm of other organs or systems
CPT/HCPCS: 36415; 58661; 84703; 85027; 86850; 86900; 86901; 88302; J0131; J0665; J1100; J1170; J1885; J2250; J2405; J3010

== ENCOUNTER → 2025-06-27 | Outpatient (REF) | payer BC ==
[~2025-06-27] MED LIST changes: +AMIT10TA11; -AMIT10TA7; +COLA100C5 PO; -CYCL5TAB PO; +CYCL5TAB4 PO; -IBUP-1022 PO; +IBUP600T42 PO; +IBUP80TA PO; -LR 1,000 ML IV SCH; +ONDA-282 PO; -ONDA4TAB6 PO; +PERC5TAB12 PO
== END ==
LOC: M PLALAB 10:01
PROVIDERS: ATTEND Obstetrics & Gynecology
DX: Z12.4 Encounter for screening for malignant neoplasm of cervix (principal)

== ENCOUNTER → 2025-06-30 | Outpatient (CLI) | payer BC | LOC: M WHC 14:24 | PROVIDERS: ATTEND Obstetrics & Gynecology | DX: N63.23 Unspecified lump in the left breast, lower outer quadrant (principal); Z53.9 Procedure and treatment not carried out, unspecified reason ==